=== PATIENT | female | born 1995 | race Two or more races ===

== ENCOUNTER 2021-10-05 15:18 | Day surgery (SDC) | payer OTHER ==
[~2021-10-05] VITALS: Ht 157.5 cm; Wt 71.2 kg
[2021-10-05] MEDS ORDERED: ZYRTEC10 M3 PO (15:46)
[2021-10-05] MEDS ORDERED: PRENA1 CHEW TA1.4 MG PO (15:47)
== END 2021-10-06 | disposition home or self-care (01) ==
LOC: ER 15:18 → CIR.AMB 10-06 06:52
PROVIDERS: ATTEND Specialist
DX: O02.1 Missed abortion (principal); Z20.822 Contact with and (suspected) exposure to COVID-19

== ENCOUNTER 2022-12-15 12:26 | Inpatient (IN) | payer OTHER ==
[~2022-12-15] VITALS: Ht 152.4 cm; Wt 78.9 kg
[~2022-12-15 12:26] MED LIST: PRENA1 CHEW TA1.4 MG PO; ZYRTEC10 M3 PO
== END 2022-12-23 13:28 | disposition home or self-care (01) | DRG 807 ==
LOC: LDR 12-21 05:46 → OB/GYN 12-21 05:46 → LDR 12-25 13:00
PROVIDERS: ADMIT Specialist; ATTEND Specialist
PROC: 10E0XZZ Delivery of Products of Conception, External Approach (ICD-10-PCS; principal; 2022-12-21)
PROC: 4A1HXCZ Monitoring of Products of Conception, Cardiac Rate, External Approach (ICD-10-PCS; 2022-12-21)
DX: O80 Encounter for full-term uncomplicated delivery (principal); Z37.0 Single live birth; Z3A.38 38 weeks gestation of pregnancy; Z20.822 Contact with and (suspected) exposure to COVID-19